=== PATIENT | female | born 1950 ===

== ENCOUNTER → 2018-10-15 | Outpatient (CLI) | payer OTHER | LOC: CAT 07:54 | DX: K57.30 Diverticulosis of large intestine without perforation or abscess without bleeding (principal); M47.816 Spondylosis without myelopathy or radiculopathy, lumbar region; Z90.710 Acquired absence of both cervix and uterus ==

== ENCOUNTER → 2019-02-10 | Outpatient (CLI) | payer OTHER | LOC: RAD 10:39 | DX: M16.12 Unilateral primary osteoarthritis, left hip (principal) ==